=== PATIENT | male | born 1990 | race Caucasian/White ===

== ENCOUNTER 2020-10-15 17:25 | Emergency (ER) | payer OTHER ==
[~2020-10-15 17:25] MED LIST: FLOMAX 0.4 MG0.4 MG PO; IBUPROFEN800 MG PO; PERCOCET 5-3251 EACH PO; PROTONIX20 MG PO; TEGRETOL200 MG PO; VITAMIN D250000 UNIT PO; VOLTAREN **OUT50 MG PO; ZOFRAN4 MG SL
[2020-10-15 18:21] LABS: BASOPHIL 0.4 % (0-2); EOSINOPHIL 0.8 % (0-5); HCT 46.2 % (42.0-52.0); MCH 30.7 pg (25.0-31.0); MCHC 32.5 g/dL (32.0-36.0); MCV 94.5 fL (78.0-100.0); MONOCYTE 9.6 % (0-12); MPV 10.2 fL (6.0-9.5); NEUTROPHIL 64.2 % (41-80); NRBC 0; PLT 305 K/uL (150-400); RBC 4.89 M/uL (4.70-6.00); RDW 11.7 % (11.5-14.0); WBC 7.8 K/uL (4.0-10.5)
[2020-10-15 18:29] LABS: BILIRUBIN NEGATIVE (NEGATIVE); BLOOD 1+ Ery/uL (NEGATIVE); CLARITY CLEAR (CLEAR); COLOR YELLOW (YELLOW); GLUCOSE (U) NORMAL (NORMAL); LEUKOCYTES NEGATIVE Leu/uL (NEGATIVE); NITRITE NEGATIVE (NEGATIVE); PROTEIN NEGATIVE (NEGATIVE); SPECIFIC GRAVITY >=1.030 (1.001-1.030); UROBILINOGEN 0.2 mg/dL (0.2-1.0); pH 5.5 (5.0-9.0)
[2020-10-15 18:33] LABS: ALBUMIN 3.9 g/dL (3.4-5.0); BILIRUBIN - TOTAL 0.3 mg/dL (0.2-1.0); BUN/CREAT RATIO (CALC) 11.8 RATIO; CREATININE 1.02 mg/dL (0.67-1.17); GLOBULIN (CALCULATION) 3.9 g/dL; MAGNESIUM 2.3 mg/dL (1.8-2.4); TOTAL PROTEIN 7.8 g/dL (6.4-8.2)
== END 2020-10-15 20:35 | disposition home or self-care (01) ==
LOC: FER 17:25
PROVIDERS: Emergency Medicine
DX: G40.409 Other generalized epilepsy and epileptic syndromes, not intractable, without status epilepticus (principal); U07.1 COVID-19; R79.89 Other specified abnormal findings of blood chemistry; Z87.891 Personal history of nicotine dependence
CPT/HCPCS: 36415; 80053; 81001; 83735; 84145; 85025; J1885; J7030

== ENCOUNTER 2021-03-04 17:35 | Emergency (ER) | payer OTHER ==
[2021-03-04 19:01] LABS: BASOPHIL 0.9 % (0-2); EOSINOPHIL 4.4 % (0-5); HCT 46.7 % (42.0-52.0); HGB 15.7 g/dl (13.2-18.0); LYMPHOCYTE 32.9 % (15-48); MCH 31.5 pg (25.0-31.0); MCHC 33.6 g/dL (32.0-36.0); MCV 93.6 fL (78.0-100.0); MONOCYTE 9.8 % (0-12); MPV 9.4 fL (6.0-9.5); NEUTROPHIL 51.8 % (41-80); NRBC 0; PLT 299 K/uL (150-400); RBC 4.99 M/uL (4.70-6.00); RDW 12.6 % (11.5-14.0); WBC 5.7 K/uL (4.0-10.5)
[2021-03-04 19:12] LABS: BILIRUBIN NEGATIVE (NEGATIVE); BLOOD NEGATIVE Ery/uL (NEGATIVE); CLARITY CLEAR (CLEAR); COLOR YELLOW (YELLOW); GLUCOSE (U) NORMAL (NORMAL); LEUKOCYTES NEGATIVE Leu/uL (NEGATIVE); NITRITE NEGATIVE (NEGATIVE); PROTEIN NEGATIVE (NEGATIVE); UROBILINOGEN 0.2 mg/dL (0.2-1.0)
[2021-03-04 19:19] LABS: ALBUMIN 4.6 g/dL (3.4-5.0); BILIRUBIN - TOTAL 0.2 mg/dL (0.2-1.0); BUN/CREAT RATIO (CALC) 11.1 RATIO; CREATININE 0.9 mg/dL (0.67-1.17); GLOBULIN (CALCULATION) 3.8 g/dL; POTASSIUM 4.1 mmol/L (3.5-5.1); TOTAL PROTEIN 8.4 g/dL (6.4-8.2)
[2021-03-04] MEDS ORDERED: BENTYL10 MG PO (19:51)
[2021-03-04] MEDS ORDERED: ZOFRAN4 M1 PO (19:51)
[2021-03-20] MEDS ORDERED: PRILOSEC20 MG PO (09:26)
[2021-03-20] MEDS ORDERED: MONTELUKAST SOD10 MG PO (09:26)
[2021-03-20] MEDS ORDERED: PRAVASTATIN SOD10 MG PO (09:26)
[2021-03-28] MEDS ORDERED: MOTRIN600 MG PO (11:50)
[2021-03-28] MEDS ORDERED: COLACE100 MG PO (11:50)
[2021-03-28] MEDS ORDERED: OXY-IR 5MG5 MG PO (11:50)
[2021-03-28] MEDS ORDERED: ACETAMINOPHEN500 M1 PO (11:50)
[2021-03-28] MEDS ORDERED: ZOFRAN4 M1 PO (13:32)
== END 2021-03-04 20:10 | disposition home or self-care (01) ==
LOC: FER 17:35
PROVIDERS: Emergency Medicine
DX: R10.9 Unspecified abdominal pain (principal); R11.2 Nausea with vomiting, unspecified; Z87.442 Personal history of urinary calculi
CPT/HCPCS: 36415; 80053; 81003; 82150; 83690; 85025; J1885; J2405

== ENCOUNTER → 2021-03-28 | Day surgery (SDC) | payer OTHER ==
[~2021-03-28] VITALS: Ht 175.3 cm; Wt 99.8 kg
[~2021-03-28] MED LIST changes: +ACETAMINOPHEN500 M1 PO; +BENTYL10 MG PO; +COLACE100 MG PO; +MONTELUKAST SOD10 MG PO; +MOTRIN600 MG PO; +OXY-IR 5MG5 MG PO; +PRAVASTATIN SOD10 MG PO; +PRILOSEC20 MG PO; +ZOFRAN4 M1 PO
[2021-03-28 08:33] LABS: CREATININE 0.83 mg/dL (0.67-1.17); POTASSIUM 4.4 mmol/L (3.5-5.1)
== END | disposition home or self-care (01) ==
LOC: FAS 07:31
PROVIDERS: Anesthesiology
DX: K81.1 Chronic cholecystitis (principal); K66.0 Peritoneal adhesions (postprocedural) (postinfection); K21.9 Gastro-esophageal reflux disease without esophagitis; G40.909 Epilepsy, unspecified, not intractable, without status epilepticus; E78.5 Hyperlipidemia, unspecified; F17.210 Nicotine dependence, cigarettes, uncomplicated; Z79.899 Other long term (current) drug therapy
CPT/HCPCS: 36415; 80048; 93005; J1170; J1644; J2250; J2405; J2704; J2710; J3010; J7120

== ENCOUNTER → 2021-07-09 | Day surgery (SDC) | payer OTHER ==
[~2021-07-09] VITALS: Ht 177.8 cm; Wt 99.8 kg
== END | disposition home or self-care (01) ==
LOC: FAS 08:04
DX: K40.90 Unilateral inguinal hernia, without obstruction or gangrene, not specified as recurrent (principal); F17.200 Nicotine dependence, unspecified, uncomplicated; E78.00 Pure hypercholesterolemia, unspecified; K21.9 Gastro-esophageal reflux disease without esophagitis; Z79.899 Other long term (current) drug therapy; Z86.16 Personal history of COVID-19; Z90.49 Acquired absence of other specified parts of digestive tract; E78.5 Hyperlipidemia, unspecified; Z72.89 Other problems related to lifestyle
CPT/HCPCS: J0690; J1100; J1170; J1644; J2250; J2405; J2704; J3010; J7120